=== PATIENT | male | born 1990 | race Two or more races ===

== ENCOUNTER 2023-04-08 02:49 | Emergency (ER) | payer SELFPAY ==
[2023-04-08] MEDS ORDERED: Acetaminophen 325 MG Tab PO ONE (03:52)
[2023-04-08] MEDS ORDERED: Bacitracin Oint 1 GM U/D Packet TOP ONE (04:03)
== END 2023-04-08 04:37 | disposition home or self-care (01) ==
LOC: MW.ED 02:49
DX: S62.317A Displaced fracture of base of fifth metacarpal bone, left hand, initial encounter for closed fracture (principal); W22.03XA Walked into furniture, initial encounter
CPT/HCPCS: 29125; 73030; 73130; 99283; A9270